=== PATIENT | male | born 1950 | race Caucasian/White ===

== ENCOUNTER → 2024-06-20 | Outpatient (CLI) | payer OTHER, SELFPAY ==
--- NOTE | 2024-06-20 08:56 | VDUE_ITS ---
Reason For Study: ESRD Right Arm Left Arm The right Brachial artery measures 0.65 x The left Brachial artery measures 0.55 x 0.61 cm with a velocity of 65.9 cm/sec. 0.54 cm with a velocity of 68.8 cm/sec. The right Radial artery measures 0.18 x 0.18 The left Radial arteyr measures 0.25 x 0.25 cm with a velocity of 72.3. cm/sec. cm with a velocity of 50.3 cm/sec. Cephalic Vein at distal forearm measures Cephalic Vein at distal forearm measures 0.21 x 0.22 cm. 0.16 x 0.15 cm. Cephalic Vein at mid forearm measures 0.20 x Cephalic Vein at mid forearm measures 0.25 x 0.21 cm. 0.26 cm. Cephalic Vein proximal forearm measures 0.20 Cephalic Vein proximal forearm measures 0.32 x 0.19 cm. x 0.33 cm. Cephalic Vein distal upper arm measures 0.27 Cephalic Vein distal upper arm measures 0.41 x 0.28 cm. x 0.41 cm. Cephalic Vein at mid upper arm measures 0.20 Cephalic Vein at mid upper arm measures 0.31 x 0.22 cm. x 0.32 cm. Cephalic Vein at proximal upper arm measures Cephalic Vein at proximal upper arm measures 0.26 x 0.27 cm. 0.23 x 0.26 cm. Proximal Basilic vein measures 0.36 x 0.35 Proximal Basilic vein measures 0.28 x 0.30 cm. cm. Mid Basilic vein measures 0.28 x 0.33 cm. Mid Basilic vein measures 0.28 x 0.28 cm. Distal Basilic vein measures 0.23 x 0.26 cm. Distal Basilic vein measures 0.25 x0.26 cm. VL/Dialysis Vein Map PRE-OP BILAT Interpretation Summary Bilateral upper extremity veins patent with measurements above. Bilateral upper extremity arteries patent with normal waveforms/velocities and measurements above. Ordering Physician: Denys Russell Referring Physician: Duran Rosa Performed By: Cyn Veloz RVJuan ???
== END | disposition home or self-care (01) ==
PROVIDERS: PCP Family Medicine; Referring Provider Family Medicine; Visit Provider Student in an Organized Health Care Education/Training Program
DX: N18.6 End stage renal disease (principal)
CPT/HCPCS: 93985

== ENCOUNTER 2024-07-17 07:54 | Day surgery (SDC) | payer OTHER, SELFPAY ==
[2024-07-17] VITALS (13 sets, daily range): BP systolic 88–184; BP diastolic 59–85; PULSE 57–69; RESP 14–16; TEMP 36.2–36.6; O2SAT 89–94; BMI 31.7
[2024-07-17 08:53] LABS: Hematocrit 31.6 % (40-54); Hemoglobin 10.2 g/dL (13.0-16.5); Mean Corp Hgb Conc 32.3 g/dL (32-36); Mean Corpuscular Hgb 31.2 pg (27.0-32.0); Mean Corpuscular Volume 96.6 fL (80-94); Mean Platelet Vol. 11.1 fl (6.2-12.0); POSITIVE COUNT YES; Platelet Count 78 K/mm3 (150-450); RBC Distribution Width CV 13.7 % (11.6-14.6); RBC Distribution Width SD 48.7 fl (35.1-43.9); Red Blood Count 3.27 M/mm3 (4.6-6.2)
[2024-07-17 08:55] LABS: Scan Indicated on CBC? Y/N YES- FLAGS NOTED
[2024-07-17 09:05] LABS: Anion Gap 7 (5-15); BUN 52 mg/dL (7-18); BUN/Creat Ratio 5.4 RATIO (10-20); Calcium,Total 8.4 mg/dL (8.5-10.1); Chloride 105 mmol/L (98-107); Creatinine, Serum 9.59 mg/dL (0.70-1.30); EST Glomerular Filtration Rate 6 mL/min (>60); Est Glom Filt Rate - Afr Amer 7 mL/min (>60); Estimated Creatinine Clearance 7.55 ml/min; Glucose 85 mg/dL (74-106); Potassium 4.8 mmol/L (3.5-5.1); Sodium Level 141 mmol/L (136-145)
--- NOTE | 2024-07-17 09:06 | PRE.ANES_ITS ---
ASA Classification* ASA Classification ASA Classification: 3 Assessment & Plan Anesthesia* Anesthesia Assessment Anesthesia Assessment: Discussed sedation and/or anesthesia options, risks, benefits, and alternatives with patient/parents/legal guardian/POA. Questions invited. The patient/parents/legal guardian/POA seems to understand and agrees to proceed with anesthesia plan. Reviewed the physical assessment, medical history, allergy history and patient home medications list prior to surgery/procedure/anesthetic and documented any changes. Performed airway and anesthesia risk assessments. Anesthesia Type Anesthesia Type: MAC History Source History Obtained from:: Patient and Chart Anesthesia Focused Assessment* Temperature: 97.6 F Pulse Rate: 69 Blood Pressure: 184/85 Respiratory Rate: 16 Pulse Ox: 94 Oxygen Delivery Method: Room Air Airway Assessment Mouth opens: 2 cm Mallampati Score: IV Teeth Condition: Full (Full upper and lower dentures.) Neck Range of motion (ROM): Limited ROM (Somewhat decreased extension) Focused Labs Anesthesia Preop lab: CBC WBC 6.0 K/mm3 (4.4-11.0) 07/17/24 08:39 RBC 3.27 M/mm3 (4.6-6.2) L 07/17/24 08:39 Hgb 10.2 g/dL (13.0-16.5) L 07/17/24 08:39 Hct 31.6 % (40-54) L 07/17/24 08:39 Plt Count 78 K/mm3 (150-450) L 07/17/24 08:39 CHEMISTRY Potassium 4.8 mmol/L (3.5-5.1) 07/17/24 08:39 Sodium 141 mmol/L (136-145) 07/17/24 08:39 BUN 52 mg/dL (7-18) H 07/17/24 08:39 Creatinine 9.59 mg/dL (0.70-1.30) H* 07/17/24 08:39 Glucose 85 mg/dL (74-106) 07/17/24 08:39 COAG Pre-Assessment Diagnosis/Proposed Procedure Planned Operative Procedure(s): LEFT ARM AV FISTULA CREATION POSS GRAFT Anesthesia History Anesthesia History - pediatric speech language pathologist: Anesthesia History - pediatric speech language pathologist Hx Hospitalization Yes: 04/2024 FLUID OVERLOAD 07/13/24 08:12 Any Problems With Anesthesia No 07/13/24 08:12 Cholinesterase deficiency No 07/13/24 08:12 You/Your Family Experience No 07/13/24 08:12 fever (hyperthermia) with Relationship Recent Exposure to Contagious No 07/17/24 08:31 Disease Does patient have nerve No 07/13/24 08:12 stimulator Patient instructed to have device shut off --Does patient have Pacemaker No 07/17/24 08:31 or ICD? When Was Last Pacemaker Check QUESTION #4 FULL TEXT: You/Your Family Experience fever (hyperthermia) with Anesthesia Last Oral Intake Last Oral intake: Last Oral Intake NPO since 06:00 07/17/24 08:31 Meds taken in AM with sips of Yes 07/17/24 08:31 water? Meds patient instructed to see mar 07/17/24 08:31 take am of surgery Any additional information?: Yes NPO since: 06:00 (Patient took his medications with water at 6 AM) Meds taken in AM with sips of water?: Yes PONV PONV - pediatric speech language pathologist: PONV - pediatric speech language pathologist Female No 07/13/24 08:12 HX of Motion Sickness No 07/13/24 08:12 HX of N/V After Surgery No 07/13/24 08:12 Non-Smoker Yes 07/13/24 08:12 Duration of Surgery greater Yes 07/13/24 08:12 than 60 minutes Number of Risk Factors 2 07/13/24 08:12 PONV Score Moderate Risk 07/13/24 08:12 Height & Weight Height & Weight: Anesthesia: Height & Weight Height 5 ft 9 in 07/17/24 08:31 Weight: 97.522 kg 07/17/24 08:31 Body Mass Index (BMI) 31.7 07/17/24 08:31 Respiratory Assessment Respiratory Assessment - pediatric speech language pathologist: Respiratory Tract Infection Hx - pediatric speech language pathologist Hx Respiratory Tract Infection No 07/13/24 08:12 STOP Sleep Apnea STOP Sleep Apnea - pediatric speech language pathologist: STOP Sleep Apnea - pediatric speech language pathologist Hx Hypertension Yes: CONTROLLED WITH MED 07/13/24 08:12 Hx Sleep Apnea No 07/13/24 08:12 CPAP BIPAP Do you snore loudly (louder Yes 07/13/24 08:12 than talking or can be heard Do you often feel tired/ No 07/13/24 08:12 fatigued/ sleepy during daytime? Has anyone observed you stop No 07/13/24 08:12 breathing during sleep? STOP Results Positive 07/13/24 08:12 QUESTION #5 FULL TEXT : Do you snore loudly (louder than talking or can be heard through closed doors)? 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 Specify any problems Hx of Preganancy in last 3 N/A 07/13/24 08:12 Months Nurse Filling Out Transfusion DSCHRIBER 07/13/24 08:12 & Questions: Date: 07/13/24 07/13/24 08:12 Time: 08:14 07/13/24 08:12 Patient unable to answer at this time (ie. confused, unrespo /Reproduction History /Reproductive History - pediatric speech language pathologist: /Reproductive Hx- pediatric speech language pathologist Hx Now No 07/13/24 08:12 Gestational Age (in weeks): EDC: Hx Hx Para Hx Section SAB No 07/13/24 08:12 Active Medications Active Medications: Current Medications Generic Name Dose Route Start Last Admin Trade Name Freq PRN Reason Stop Dose Admin Cefazolin Sodium 2 gm/ N/A 20 mls @ 400 mls/hr 07/17/24 10:00 IV 07/17/24 10:02 PREOP ONE [facility] Medical History Wears hearing aid Wears glasses Wears dentures Insulin dependent diabetes mellitus History of renal dialysis Low iron Syncope Dietary restriction Gastric reflux Non-smoker Shortness of breath on exertion History of edema History of echocardiogram Cardiology follow-up encounter Hypertension Diabetes ESRD (end stage renal disease) Home Medications ?Medication ?Instructions ?Recorded ?Last Taken ?Type aspirin 81 mg tablet,delayed 81 mg PO QDAY 07/04/24 07/16/24 History release calcium acetate 667 mg tablet 1,334 mg PO TID 07/04/24 Unknown History carvedilol 12.5 mg tablet 12.5 mg PO BID 07/04/24 07/17/24 06:00 History furosemide 40 mg tablet (Lasix) 40 mg PO .QDAY PRN PRN edema 07/04/24 Unknown History hydralazine 25 mg tablet 25 mg PO TID 07/04/24 07/17/24 06:00 History multivitamin 1 tab PO QDAY 07/04/24 Unknown History pantoprazole 40 mg granules 40 mg PO BID 07/04/24 Unknown History delayed-release for susp in packet insulin human U-100 NPH-regulr 10 unit subcut BID SLIDING SCALE 07/13/24 Unknown History 70-30 mix 100 unit/mL subcutaneous susp (Humulin 70/30 U-100 Insulin) Allergy/AdvReac Type Severity Reaction Status Date / Time No Known Allergies Allergy Verified 07/17/24 08:29 Family History Other CAD (coronary artery disease) Cancer Colon cancer Heart disease Myocardial infarction Sudden cardiac Surgical History History of cardiac catheterization Hx of hernia repair History of replacement of dialysis catheter History of open heart surgery Social History Smoking Status: Never smoker Review of Systems (Anesthesia) ROS Narrative System reviewed and no additional complaints, except as documented.
[2024-07-17 09:36] LABS: Bedside Glucose 80 mg/dL (74-106)
--- NOTE | 2024-07-17 10:42 | PCM.HP.BLA ---
History and Physical Allergies No Known Allergies Allergy (Unverified 07/04/24 13:22) Medications ?Medication ?Instructions ?Recorded ?Confirmed ?Type aspirin 81 mg tablet,delayed 81 mg PO QDAY 07/04/24 07/04/24 History release calcium acetate 667 mg tablet 1,334 mg PO TID 07/04/24 07/04/24 History carvedilol 12.5 mg tablet 12.5 mg PO BID 07/04/24 07/04/24 History furosemide 40 mg tablet (Lasix) 40 mg PO QDAY 07/04/24 07/04/24 History hydralazine 25 mg tablet 25 mg PO TID 07/04/24 07/04/24 History insulin glargine 100 unit/mL (3 15 unit subcut QHS 07/04/24 07/04/24 History mL) subcutaneous pen multivitamin 1 tab PO QDAY 07/04/24 07/04/24 History pantoprazole 40 mg granules 40 mg PO BID 07/04/24 07/04/24 History delayed-release for susp in packet Have you fallen in the past year?: No PFSH Medical History Hernia Diabetes ESRD (end stage renal disease) Surgical History Hx of hernia repair History of replacement of dialysis catheter History of open heart surgery Family History Other CAD (coronary artery disease) Cancer Colon cancer Heart disease Myocardial infarction Sudden cardiac Social History Smoking Status: Never smoker HPI HPI HPI: MARGARET TORRES, is a 74 M who presents to the office today for evaluation for dialysis access creation. Has been on dialysis for about 3 years; PD until earlier this year when they were unable to keep fluid balance and he was converted to hemodialysis. Has been tolerating well with right IJ catheter; had to be replaced when accidentally pulled out. Prior right write fracture that required surgery. No clavicle fracture/pacer/PICC/DVT/edema/node dissection. Right hand dominant. ROS General General: No weight change, appetite, fatigue, colon cancer, breast cancer or weakness HEENT HEENT: No difficulty swallowing, eye injury, eye surgery, swollen glands or hoarseness Endo Endocrine: Yes diabetes mellitus; No thyroid disease, thyroid cancer, Hair loss, heat intolerance or cold intolerance Skin Skin: No rash or changing moles Musc Musculoskeletal: No back problems, arthritis, rheumatoid arthritis, gout or joint pain Cardio Cardiovascular: No murmur, pacemaker, heart disease, atrial fibrillation, high blood pressure, heart attack, heart stent, palpitations, shortness of breat with exertion or chest pain Psych Psychiatric: No depression, anxiety or hearing voices Resp Respiratory: No shortness of breath, No sleep apnea, No cough, No COPD, No asthma, No emphysema and No wheezing Gastro Gastrointestinal: No abdominal pain, No nausea or vomiting, No diarrhea, No constipation, No blood in stool, No acid reflux, No hemorrhoids, No ulcers, No gallbladder problem and No black,tarry stools Joseph Hematologic: Yes blood thinners, No blood disorders, No bleeding, No anemia and No blood clots Neuro Neurologic: No system reviewed and no additional complaints, except as documented, No as per HPI, No abnormal gait, No abnormal hearing, No abnormal movements, No abnormal speech, No behavioral changes, No burning sensations, No confusion, No convulsions, No disequilibrium, No dizziness, No localized weakness, No frequent falls, No headache(s), No lack of coordination, No loss of vision, No memory loss, No numbness, No other visual disturbances, No radicular pain, No restless legs, No sensory deficit, No syncope, No tingling, No tremor(s), No weakness and No other Exam Const General: cooperative, healthy appearing, comfortable, no acute distress and well developed Nutritional Appearance: well nourished Orientation: alert, awake and oriented x3 [facility] Head: normocephalic and atraumatic Ears: hearing grossly normal bilaterally Nose: external nose normal Eyes General: appearance normal, both eyes and all related structures EOM: EOM intact bilaterally Neck Neck: normal visual inspection and full ROM Resp Effort & Inspection: normal respiratory effort, able to speak in complete sentences, symmetric chest movement, no audible wheezes, not labored, no stridor and no use of accessory muscles Cardio Rate: regular rate Rhythm: regular rhythm Pulses: brachial pulses present and radial pulses present Skin General: no rashes or lesions noted and no erythema Wounds: no wounds Neuro Cranial Nerves: CN's II-XI intact bilaterally and EOM intact bilaterally Speech: speech normal Gait: normal gait Motor: strength 5/5 throughout Sensory Exam: no sensory deficits noted Psych Appearance: grossly normal and well kempt Mental Status: mental status grossly normal Mood: congruent mood Speech and Movement: speech and movement normal Thought Content: normal Judgment: judgment good Coding Level of Care Code Off vis,new,level 4 Diagnoses ESRD (end stage renal disease) N18.6 Assessment and Plan Assessment and Plan (1) ESRD (end stage renal disease): Status: Chronic Plan: -left basilic and cephalic marginal; plan fistula but if found to be inadequate then graft
[2024-07-17] MEDS: Cefazolin 2 GM in Syringe IV (11:44)
--- NOTE | 2024-07-17 13:01 | EX.PCM.DISCH ---
Discharge Instructions Diet Discharge Diet: No restrictions Activity Lifting Restrictions: do not lift > 20 lbs with left arm x 14 days Additional Activity Instructions:: do not submerge incision x 14 days Dressing / Incision Call your doctor if your incision/area has: Sudden Increased Bleeding, Increased Pain/ Swelling, Increased Redness and Foul Smelling Discharge Call your doctor if you observe: Fever of 101 or Higher, Coldness, Increased Pain and Numbness or Tingling Remove Dressing in: 2 days Cleanse incision/area with: Soap & Water Follow Up Care Test Results: Test results from this visit will be discussed in further detail at your follow-up appointment, if applicable. Discharge Plan Admission Attending Provider: Randall Gardner Primary Care Provider: Duran Rosa Instructions Print Language: Uzbek Discharge Orders/Prescriptions Prescriptions: New oxycodone 5 mg tablet 5 mg PO Q8H PRN (Reason: pain) 2 Days Qty: 6 0RF Continued aspirin 81 mg tablet,delayed release (DR/EC) 81 mg PO QDAY carvedilol 12.5 mg tablet 12.5 mg PO BID Rx Instructions: must administer with a meal/food furosemide [Lasix] 40 mg tablet 40 mg PO .QDAY PRN PRN (Reason: edema) pantoprazole [address] for susp in packet 40 mg PO BID hydralazine 25 mg tablet 25 mg PO TID calcium acetate 667 mg tablet 1,334 mg PO TID multivitamin Tablet 1 tab PO QDAY Humulin 70/30 U-100 Insulin 100 unit/mL (70-30) suspension 10 unit subcut BID Referrals / Follow Up: Duran Rosa MD [Primary Care Provider] - Disposition Disposition (needs filled in before D/C Order can be placed): Home, Self Care
[2024-07-17] MEDS: Lidocaine 1% (20 ml mdv) 20 ML Vial (13:04)
[2024-07-17] MEDS: Bupivacaine 0.25% 30 ML Vial (13:04)
--- NOTE | 2024-07-17 13:26 | PCM.POST.ANE ---
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
[2024-07-17 13:37] LABS: Bedside Glucose 110 mg/dL (74-106)
--- NOTE | 2024-07-17 16:41 | PCM.POSTANE2 ---
Anesthesia Postop Eval I Sum Postop Eval Completion status Anesthesia document: Postop Eval 1 completed: Yes Anesthesia Postop Eval I Summary Anesthesia Postop Eval I Summary: Anesthesia Postop Eval I: Assessment Summary Airway patent Yes 07/17/24 13:27 [email or web address] Spontaneous unlabored Yes 07/17/24 13:27 [email or web address] respirations Mental status Asleep 07/17/24 13:27 [email or web address] nausea No 07/17/24 13:27 [email or web address] Vomiting No 07/17/24 13:27 [email or web address] Anesthesia Postop Eval I: Fluid Summary Crystalloid volume administer 90 07/17/24 13:27 [email or web address] (ml) Colloids volume administered ( ml) Blood Product volume administered (ml) Total IV fluid infused 90 07/17/24 13:27 [email or web address] Anesthesia Postop Eval I: Summary Notes Anesthesia Complication Yes 07/17/24 13:27 [email or web address] Anesthesia Complication bruising noted on 07/17/24 13:27 [email or web address] Comment: 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
--- NOTE | 2024-07-17 16:59 | PCM.OPRPT ---
Operative Report (Standard) Operative Information Date of Procedure: 07/17/24 Pre-Operative Diagnosis: End-stage renal disease Post-Operative Diagnosis: Same Surgery/Procedure Performed: Left brachiocephalic AV fistula creation crew lead: Yes Lead Java [id number] Developer: Renetta Nicole Tasks completed by electrician's assistant: Opening, Closing, Opening & closing, Hemostasis: Tie, Hemostasis: Electrocautery and Retracting Type of Anesthesia: Local and MAC RN Documented Start/Stop Times: Operation Date: 07/17/24 10:00 Case Time Into Pre-Op 07/17/24 08:19 Out of Pre-Op 07/17/24 11:24 Anesthesia Start 07/17/24 11:29 Into Room 07/17/24 11:29 Procedure Start 07/17/24 11:55 Procedure End 07/17/24 13:09 Anesthesia End 07/17/24 13:15 Out of Room 07/17/24 13:15 Into Recovery 07/17/24 13:20 Out of Recovery 07/17/24 14:46 Into Phase II Recovery 07/17/24 14:47 Out of Phase II 07/17/24 15:44 Procedure Start Time: 11:55 Procedure Stop Time: 13:09 Select all DRAINS/GRAFTS/IMPLANTS that apply: None Estimated Blood Loss: 10 Specimen collected: No Description of surgery: HPI: Patient is a 74-year-old male with end-stage renal disease currently on hemodialysis. He previously been on peritoneal dialysis for this is no longer adequate for him. He had preoperative vein mapping which revealed marginal cephalic vein and basilic vein of the left upper arm. He presents now for fistula creation with possible graft. Description of procedure: Upon obtaining form consent and verification correct patient procedure and site the patient was taken the operating where he was positioned prepped and draped in usual sterile fashion. Timeout was then performed and moderate sedation ministered by anesthesia. Ultrasound was used to evaluate the cephalic and basilic veins of the upper arm. The basilic vein was adequate in the proximal one third of the upper arm that was small caliber with a very small cubital branch in the distal upper arm. However was adequate in caliber from the lateral cubital branch into the cephalic vein through the entirety of the remaining vessel in the upper arm. This felt that this was satisfactory for fistula creation vein artery with close proximity distal to antecubital crease. Skin overlying this area was anesthetized with lidocaine and Marcaine in transit incision created. Bovie electrocautery was dissect down through subcutaneous tissue and self-retaining retractor in position. Once the vein was visualized sharp dissection was dissected free proximal and distal with sidebranches ligated with silk ties and divided. Retracted laterally and dissection carried down to the fascia which was incised in a cruciate configuration and sent moved deeper into the wound. Sharp dissection was then used to dissect free the brachial vein proximal and distal with care taken to identify protect the adjacent nerve and vein structures. A right angle was placed vessel with proximal and distal and the patient was heparinized and allowed to circulate for 3 minutes. The vein was then ligated distally and divided. The brachial vein was then occluded with Vesseloops and longitudinal arteriotomy created with an 11 blade extended with a Holder scissors. Length and beveled to match the arteriotomy and anastomosis with 6-0 Prolene in a running. Prior to completing the suture line vessels were backbled and after completing the suture line clamps removed and satisfactory stasis was observed. Focal thrill in the fistula in the distal one third of the arm and low resistance signal through the entirety of the upper arm. Continue to be a palpable radial pulse at the wrist. Heparin was then reversed with protamine and the incision inspected for hemostasis. Was then closed with 3-0 Vicryl followed by 4 Monocryl and Dermabond for the skin. The patient was then taken recovery room with anticipated discharge to home. Surgical Findings: Palpable thrill, palpable radial pulse Complications Complications: No
== END 2024-07-17 15:45 | disposition home or self-care (01) ==
LOC: SDC 07:55 → AC 07:56
PROVIDERS: PCP Family Medicine; Referring Provider Surgery Trauma Surgery; Visit Provider Surgery Trauma Surgery
PROC: (CPT 36821; principal; 2024-07-17 09:45)
DX: E11.22 Type 2 diabetes mellitus with diabetic chronic kidney disease (principal); N18.6 End stage renal disease; I12.0 Hypertensive chronic kidney disease with stage 5 chronic kidney disease or end stage renal disease; Z79.4 Long term (current) use of insulin; K21.9 Gastro-esophageal reflux disease without esophagitis; Z99.2 Dependence on renal dialysis; Z79.82 Long term (current) use of aspirin; Z79.899 Other long term (current) drug therapy
CPT/HCPCS: 36821; 01844; 80048; 82962; 85027; A4648; A4216; J2405

== ENCOUNTER → 2024-10-30 | Outpatient (CLI) | payer OTHER, SELFPAY ==
--- NOTE | 2024-10-30 08:40 | AVDS_ITS ---
Reason For Study Reason For Study: Bruising after dialysis LEFT Inflow, 264.4/125.8 cm/sec. Inflow, 1716 ml/min. Prox anastamosis, 516.2/236.5 cm/sec. Prox anastamosis, 709.4 ml/min. Prox graft, 181.4/54.1 cm/sec. Prox graft, 3767 ml/min. Mid graft, 152/82 cm/sec. Mid graft, 1373 ml/min. Distal graft, 265.5/139.9 cm/sec. Distal graft, 2948 ml/min. Outflow, 157.1/69 cm/sec. Outflow, 1157 ml/min. VL/AV Fistula/Dialysis Graft Scan Interpretation Summary Patent left upper arm fistula with adequate caliber/ flow volumes, and no steno sis identified. Branch at proximal fistula noted. No hematoma or pseudoaneurysm identified. Ordering Physician: Eleanor Dietz Referring Physician: Duran Rosa Performed By: Cyn Veloz RVT
== END | disposition home or self-care (01) ==
LOC: CVS 08:38
PROVIDERS: PCP Family Medicine; Referring Provider Physician Assistant; Visit Provider Physician Assistant
DX: Z98.890 Other specified postprocedural states (principal); N18.6 End stage renal disease
CPT/HCPCS: 93990

== ENCOUNTER 2025-04-10 11:30 | Day surgery (SDC) | payer OTHER, SELFPAY ==
[2025-04-10 07:44] VITALS: BMI 32.1
[2025-04-10 11:45] LABS: Hematocrit 28.8 % (40-54); Hemoglobin 9.5 g/dL (13.0-16.5); Mean Corp Hgb Conc 33.0 g/dL (32-36); Mean Corpuscular Volume 99.0 fL (80-94); Mean Platelet Vol. 9.7 fl (6.2-12.0); Platelet Count 126 K/mm3 (150-450); RBC Distribution Width CV 14.8 % (11.6-14.6); RBC Distribution Width SD 53.9 fl (35.1-43.9); Red Blood Count 2.91 M/mm3 (4.6-6.2); White Blood Count 7.9 K/mm3 (4.4-11.0)
--- NOTE | 2025-04-10 12:47 | PCM.HP.STD ---
HPI - General HPI Narrative MARGARET TORRES, is a 75 M who presents for removal of a right IJ catheter no longer in use for dialysis. [facility] Medical History Wears hearing aid Wears glasses Wears dentures Insulin dependent diabetes mellitus History of renal dialysis Low iron Syncope Dietary restriction Gastric reflux Non-smoker Shortness of breath on exertion History of edema History of echocardiogram Cardiology follow-up encounter Hypertension Diabetes ESRD (end stage renal disease) Home Medications ?Medication ?Instructions ?Recorded ?Last Taken ?Type aspirin 81 mg tablet,delayed 81 mg PO QDAY 07/04/24 07/16/24 History release carvedilol 12.5 mg tablet 12.5 mg PO BID 07/04/24 07/17/24 06:00 History furosemide 40 mg tablet (Lasix) 40 mg PO .QDAY PRN PRN edema 07/04/24 Unknown History hydralazine 25 mg tablet 25 mg PO TID 07/04/24 07/17/24 06:00 History multivitamin 1 tab PO QDAY 07/04/24 Unknown History pantoprazole 40 mg granules 40 mg PO BID 07/04/24 Unknown History delayed-release for susp in packet insulin human U-100 NPH-regulr 10 unit subcut BID SLIDING SCALE 07/13/24 Unknown History 70-30 mix 100 unit/mL subcutaneous susp (Humulin 70/30 U-100 Insulin) Allergy/AdvReac Type Severity Reaction Status Date / Time No Known Allergies Allergy Verified 10/25/24 10:18 Family History Other CAD (coronary artery disease) Cancer Colon cancer Heart disease Myocardial infarction Sudden cardiac Surgical History History of cardiac catheterization Hx of hernia repair History of replacement of dialysis catheter History of open heart surgery Social History Smoking Status: Never smoker ROS Constitutional Constitutional: Denies chills, fever(s), frequent falls, lethargy or weakness Eyes Eyes: Denies blind spots, change in vision or loss of vision ENT HEENT: Denies bleeding gums, hoarseness or sore throat Cardiovascular Cardiovascular: Denies abdominal pain, bluish discoloration of hand/feet, chest pain with activity, claudication, cold extremities, cyanosis, dyspnea on exertion, erythema on extremities, irregular heart rhythm, leg edema, leg ulcers, numbness in extremities or weakness in extremities Respiratory/Chest Respiratory/Chest: Denies cough, excessive phlegm production, shortness of breath at rest, shortness of breath with exertion or wheezing Gastrointestinal Gastrointestinal: Denies anorexia, change in stool character, constipation, diarrhea, melena or rectal bleeding Genitourinary Genitourinary: Denies dysuria or hematuria Musculoskeletal Musculoskeletal: Denies abnormal gait Integumentary Integumentary: Reports other Details: ; Denies erythema, non-healing lesions or wounds Neurologic Neurologic: Denies abnormal speech, focal weakness, headache(s), loss of vision, numbness, paresthesias or sensory deficit Hematologic/Lymphatic Hematologic/Lymphatic: Denies easy bleeding, easy bruising or lymphadenopathy Vital Signs Vital Signs Vital Signs: Weight Weight: 218 lb Body Mass Index (BMI) 32.1 Physical Exam Const alert, oriented x3, no apparent distress and healthy appearing General Appearance: cooperative; Negative for combative or lethargic Orientation / Consciousness: awake Exam Limitations: no limitations HEENT Head and Scalp: normocephalic and atraumatic Eyes EOMs intact bilaterally General Eye: normal appearance of both eyes Neck full ROM General: trachea midline Resp normal respiratory effort and no use of accessory muscles Effort and Inspection: Negative for labored, stridor or audible wheezes Cardio regular rate and regular rhythm Back/Spine Cervical Spine: cervical ROM normal Extremity full ROM, normal capillary refill and no clubbing, cyanosis or edema Skin no rashes or lesions noted and no wounds Neuro oriented x3, CN's II-XII intact bilaterally, no focal motor deficits and no sensory deficits noted Psych thought process normal, cooperative, affect normal, speech normal and activity/motor behavior normal Results Lab / Micro Data 04/10/25 11:35 Labs: Laboratory Results - last 24 hr 04/10/25 11:35: WBC 7.9, RBC 2.91 L, Hgb 9.5 L, Hct 28.8 L, MCV 99.0 H, MCH 32.6 H, MCHC 33.0, RDW Std Deviation 53.9 H, RDW Coeff of Siddharth 14.8 H, Plt Count 126 L, MPV 9.7 Assessment & Plan Assessment/Plan (1) S/P dialysis catheter insertion: PLAN: -remove catheter
--- NOTE | 2025-04-10 16:21 | OP.PCM_ITS ---
Operative Report (Standard) Operative Information Date of Procedure: 04/10/25 Pre-Operative Diagnosis: End-stage renal disease currently on dialysis, catheter no longer in use Post-Operative Diagnosis: Same Surgery/Procedure Performed: Removal right IJ tunneled dialysis catheter law firm receptionist: No Type of Anesthesia: Local and Sedation,Conscious Procedure Start Time: 12:50 Procedure Stop Time: 12:55 Select all DRAINS/GRAFTS/IMPLANTS that apply: None Estimated Blood Loss: 1 Specimen collected: No Description of surgery: HPI: Patient is a 75-year-old male currently on dialysis with a successful left upper extremity fistula. He has a right IJ tunneled catheter which is no longer new so he presents now for removal. Description of procedure: Upon obtaining informed consent and verification correct patient procedure and site the patient was taken to the Operation Shift Supervisor where he was positioned prepped and draped in usual sterile fashion. Timeout was performed and conscious sedation administered with Versed and fentanyl. Skin and soft tissue surrounding the cuff were anesthetized with 1% lidocaine. The cuff was then close proximity to the skin exit site so blunt dissection was utilized to mobilize the cuff from the skin exit site. Once this was mobilized circumferentially the tunneled catheter was removed in its entirety and manual pressure held at the jugular vein access site. Once satisfactory hemostasis was observed dry sterile dressing was applied and patient was awakened anesthesia taken to recovery area with plan discharge to home. Surgical Findings: See above Complications Complications: No
== END 2025-04-10 14:10 | disposition home or self-care (01) ==
PROVIDERS: PCP Family Medicine; Referring Provider Surgery Trauma Surgery; Visit Provider Surgery Trauma Surgery
DX: Z49.01 Encounter for fitting and adjustment of extracorporeal dialysis catheter (principal); I12.0 Hypertensive chronic kidney disease with stage 5 chronic kidney disease or end stage renal disease; N18.6 End stage renal disease; E11.22 Type 2 diabetes mellitus with diabetic chronic kidney disease; K21.9 Gastro-esophageal reflux disease without esophagitis
CPT/HCPCS: 36415; 36589; 85027; 99152